=== PATIENT | male | born 1980 | race American Indian/Alaskan Native ===

== ENCOUNTER 2016-07-14 04:05 | Emergency (ER) | payer MEDICAID ==
[2016-07-14 09:34] VITALS: BP 152/97
[2016-07-14] MEDS ORDERED: NORMODYNE IV ONE (10:04)
[2016-07-14] MEDS ORDERED: TORADOL IV ONE (10:05)
[2016-07-14] MEDS ORDERED: REGLAN IV ONE (10:05)
[2016-07-14] MEDS ORDERED: BENADRYL IV ONE (10:05)
== END 2016-07-14 13:15 | disposition left against medical advice (07) ==
LOC: ED 04:05
DX: R51 Headache (principal); R03.0 Elevated blood-pressure reading, without diagnosis of hypertension; Z53.21 Procedure and treatment not carried out due to patient leaving prior to being seen by health care provider